=== PATIENT | male | born 1995 | race African-American/Black ===

== ENCOUNTER 2016-09-12 12:20 | Emergency (ER) ==
--- NOTE | 2016-09-12 12:50 | PROVIDER DOCUMENTATION ---
HPI-Musculoskeletal Pain/Inj - GENERAL Chief Complaint: Extremity Injury Stated Complaint: EXTREMITY INJURY Time Seen by Provider: 09/12/16 12:32 Source: patient - HX OF PRESENT ILLNESS-MUSKULOSKELTAL Nature of Presenting Problem: 20 y/o AAM c/o left index finger pain and swelling voer the pip after playing basketball on Monday and someone hitting him while grabbing at the ball. Went to work today and couldn't get the glove on due to Pain. No pre-arrival treatments, needs to be released to go back to work. Quality of Pain: reports: aching Severity in ED: mild Onset/Duration: 3 days ago Timing: still present, intermittent Any recent injury?: Yes Locality of Occurance: Home Similar Symptoms Previously?: No Recently seen or treated by another doctor?: No Review of Systems - Adult - REVIEW OF SYSTEMS - ADULT Constitutional: reports: no symptoms reported. denies: chills, fatique Eyes: reports: no symptoms reported. denies: eye pain Ears, Nose, Mouth & Throat: reports: no symptoms reported. denies: ear pain, nose pain, throat pain Cardiovascular: reports: no symptoms reported. denies: chest pain, palpitations Respiratory: reports: no symptoms reported. denies: cough Gastrointestinal: reports: no symptoms reported. denies: abdominal pain, diarrhea, nausea, vomiting Genitourinary: reports: no symptoms reported Musculoskeletal: reports: bone pain. denies: back pain, frequent leg cramps, joint pain, muscle aches Integumentary: reports: no symptoms reported. denies: rash Neurological: reports: no symptoms reported. denies: headache/migraines Psychiatric: reports: no symptoms reported Endocrine: reports: no symptoms reported Hematologic/Lymphatic: reports: no symptoms reported Allergic/Immunologic: reports: no symptoms reported All Other Systems: Reviewed and Negative Past History - Adult - PAST MEDICAL HISTORY-ADULT Review of Records: reports: Old Records Reviewed, Nursing Assessment Review, Medications Reviewed Major Childhood Illnesses: reports: denies history Cardiovascular: reports: denies history Respiratory: reports: denies history Gastrointestinal: reports: denies history Genitourinary: reports: denies history Musculoskeletal: reports: denies history Neurological: reports: denies history Endocrine/Immune: reports: denies history Other Conditions: reports: denies history - PRIOR SURGERIES/PROCEDURES Surgical/Procedure History: reports: reviewed, not pertinent - IMMUNIZATION STATUS Childhood Immunizations: See Nurse Assessment Flu Vaccine: See Nurse Assessment - FAMILY HISTORY Family History: reviewed, not pertinent - SOCIAL HISTORY Smoking: denies Substance Use: none/never Alcohol Use Frequency: never Physical Exam-Injury Related - Physical Exam-Injury Related Initial Vital Signs Reviewed: Yes General Appearance: appears well, alert, no apparent distress Eyes: PERRL/EOMI, pink conjunctivae Head, Ears, Nose, Mouth & Throat: normocephalic/atraumatic, moist mucous membranes Neck: non-tender, full range of motion, supple, normal inspection. negative: limited range of motion Respiratory: chest non-tender, lungs clear, normal breath sounds, no pleuratic chest pain, no respiratory distress, no accessory muscle use. negative: crackles, rales, rhonchi, stridor, wheezing Cardiovascular: normal peripheral pulses, regular rate, rhythm Peripheral Pulses: radial (R): 2+, radial (L): 2+ Extremity: other (left index finger swollen with ttp over the PIP) Integumentary: normal color, warm/dry Neurologic: grossly normal, no motor/sensory deficits Psych/Mental Status: normal mood/affect, normal thought content, normal thought process - Glascow Coma Score Best Eye Response ([place]): (4) open spontaneously Best Verbal Response ([place]): (5) oriented Best Motor Response ([place]): (6) obeys commands Progress - PLAN OF CARE/RESULTS Progress/Plan/Lab Results: Vital Signs Temp Pulse Resp BP Pulse Ox 09/12/16 12:57 97.8 F 57 L 18 115/79 98 09/12/16 12:26 98.2 F 83 16 110/73 100 No Known Allergies Allergy (Verified 09/12/16 12:29) Hydrocodone/APAP 7.5 mg/325 mg [[place]-7.5] 1 each PO Q6H PRN PRN #10 tablet Orders Category Date Time Status Frog Splint DIRECTED Care 09/12/16 12:56 Active FINGER(S)-LEFT [RAD] Stat Exams 09/12/16 12:29 Taken Procedures - SPLINTING Left Upper Extremity Pre-Fabricated Splint: Other (finger) Applied By: ED Nurse Post Procedure Neurovascular Exam: Intact Departure - Departure Time of Disposition Order: 12:49 DIAGNOSIS: Avulsion fracture of middle phalanx of finger Qualifiers: Encounter type: initial encounter Fracture type: closed Qualified Code(s): S62.629A - Displaced fracture of medial phalanx of unspecified finger, initial encounter for closed fracture Disposition: HOME 01 Certified Medical Emergency: Emergent Condition: Stable Additional Instructions: Follow up with Ale [facility], orthopedic ED Follow Up Instructions: You have been treated by a care provider in the Emergency Department. These instructions are being provided to you so you can have an understanding of how to care for yourself upon discharge. Upon discharge from the Emergency Department, you are responsible for making arrangements for follow-up care by a physician of your choice. Take all prescribed medications as directed. Return to the Emergency Department immediately for any new or worsening symptoms. You may call the Physician Referral phone number at [phone] to obtain a list of Physicians who are taking new patients. Prescriptions: Hydrocodone/APAP 7.5 mg/325 mg [[place]-7.5] 1 each PO Q6H PRN PRN #10 tablet PRN Reason: Pain Referrals: None,PCP [Primary Care Provider] - Ronel Aguilera MD [STAFF PHYSICIAN] - Forms: Return to School/Parent Work Instructions: Acetaminophen; Hydrocodone tablets or capsules, Finger Fracture, [id number] Attestation - Physician/ RIO Attestation Advanced Practice Provider:: Dagmar Garzon
--- NOTE | 2016-09-12 12:59 | Diag Imaging Result Document ---
PROCEDURE NAME: FINGER(S)-LEFT - 09/12/2016 LEFT FOURTH FINGER, THREE VIEWS: FINDINGS: There is a small bone fragment adjacent to the distal portion of the proximal phalanx of the fourth finger at the proximal interphalangeal joint. It is difficult to tell where this arises. No other fracture or dislocation. There is soft tissue swelling about the proximal interphalangeal joint. IMPRESSION: Small avulsed fragment at the proximal interphalangeal joint.
[2016-09-12 13:02] VITALS: BP 115/79
== END 2016-09-12 13:10 | disposition home or self-care (01) ==
LOC: P.ED 12:20
DX: S62.629A Displaced fracture of middle phalanx of unspecified finger, initial encounter for closed fracture (principal); M79.645 Pain in left finger(s); M25.442 Effusion, left hand; W50.0XXA Accidental hit or strike by another person, initial encounter
CPT/HCPCS: 73140; 99283